=== PATIENT | female | born 1980 | race Caucasian/White ===

== ENCOUNTER 2019-11-08 09:00 | Outpatient (CLI) | payer BC, SELFPAY ==
[2019-11-08 09:23] LABS: Basophils Absolute Auto 0.1 K/mm3 (0.0-0.1); Basophils Percent Auto 1.2 % (0.2-1.2); Eosinophils Absolute Auto 0.2 K/mm3 (0-0.3); Eosinophils Percent Auto 3.8 % (0-4.4); Hematocrit 38.5 % (37.0-47.0); Hemoglobin 13.2 g/dL (12.0-15.0); Immature Granulocyte Absolute 0.01 K/mm3 (0.00-0.031); Immature Granulocyte Percent A 0.2 % (0-0.5); Lymphocytes Absolute Auto 1.29 K/mm3 (0.9-3.2); Lymphocytes Percent Auto 26.1 % (18.3-44.2); Mean Corpuscular HGB Conc 34.3 g/dl (32-36); Mean Corpuscular Hemoglobin 31.1 pg (26-34); Mean Corpuscular Volume 90.8 fl (80-100); Mean Platelet Volume 8.4 fl (7.4-10.4); Monocytes Absolute Auto 0.3 K/mm3 (0.1-0.6); Monocytes Percent Auto 6.5 % (2.6-8.5); Neutrophils Absolute Auto 3.1 K/mm3 (1.3-6.7); Neutrophils Percent Auto 62.2 % (45.5-73.1); Platelet Count Result 279 k/mm3 (150-375); Red Blood Count 4.24 M/mm3 (4.2-5.4); Red Cell Distribution Width 12.2 % (11.5-14.5); White Blood Count 4.9 K/mm3 (4.5-10.0)
[2019-11-08 09:30] LABS: Hemoglobin A1C 5.2 % (<5.7)
[2019-11-08 09:31] LABS: Alanine Aminotransferase 25 U/L (4-35); Albumin Level 4.5 g/dL (3.5-5.1); Alkaline Phosphatase 55 U/L (38-126); Anion Gap 11 mmol/L (8-16); Aspartate Amino Transferase 29 U/L (14-36); Bilirubin,Total 0.3 mg/dL (0.2-1.3); Blood Urea Nitrogen 14 mg/dL (7-17); Calcium 8.9 mg/dL (8.4-10.2); Carbon Dioxide 26 mmol/L (22-30); Chloride 100 mmol/L (98-107); Cholesterol 247 mg/dL (0-200); Estimated Glomerular Filt Rate > 60; Glucose 90 mg/dL (65-105); HDL Direct 35 mg/dL; Potassium 4.1 mmol/L (3.4-5.0); Sodium 137 mmol/L (137-145); Triglycerides 111 mg/dL (<150)
[2019-11-08 09:42] LABS: LDL Cholesterol Direct 176 mg/dL
[2019-11-08 10:18] LABS: Free T4 Free Thyroxine 0.93 ng/mL (0.78-2.19); Vitamin D 25 Hydroxy 61.6 ng/mL
[2019-11-11 22:02] LABS: Triiodothyronine T3 Free 2.6 pg/mL (2.3-4.2)
== END 2019-11-08 09:01 | disposition home or self-care (01) ==
LOC: ANHLAB 09:02
PROVIDERS: Visit Provider Obstetrics & Gynecology
DX: Z01.419 Encounter for gynecological examination (general) (routine) without abnormal findings (principal)
CPT/HCPCS: 36415; 80053; 80061; 82306; 83036; 84439; 84443; 84481; 85025

== ENCOUNTER → 2019-11-08 11:52 | Outpatient (CLI) | payer BC, SELFPAY ==
--- NOTE | ~2019-11-08 | US_ITS ---
EXAMINATION: US thyroid DATE: 11/08/2019 12:18 INDICATION: Nontoxic goiter, unspecified. TECHNIQUE: Multiple ultrasound images of the thyroid were obtained. COMPARISON: None. FINDINGS: The right thyroid lobe measures 6.3 x 2.3 x 1.7 cm. The left thyroid lobe measures 5.5 x 1.8 x 2.0 c m. The thyroid demonstrates diffusely heterogeneous echogenicity and increased vascularity. In the l eft thyroid lobe, there is a 2.0 cm solid, hypoechoic, qcfuw-sgcv-fndf nodule with lobulated margin w ithout echogenic foci (TI-RADS TR4). In the right thyroid lobe, there is a 7 mm solid, hypoechoic, wi rvt-miau-fads nodule with lobulated margin without echogenic foci (TR4). IMPRESSION: 1. Thyroid nodules. Ultrasound-guided fine-needle aspiration of the 2.2 cm left thyroid nodule is rec ommended. 2. Heterogeneous, hypervascular thyroid, consistent with chronic lymphocytic (Jose) thyroiditis. Reviewed, dictated and finalized at location B. IMPRESSION: 1. Thyroid nodules. Ultrasound-guided fine-needle aspiration of the 2.2 cm left thyroid nodule is recommended. 2. Heterogeneous, hypervascular thyroid, consistent with chronic lymphocytic (H ashimoto) thyroiditis.
--- NOTE | ~2019-11-08 | MM_ITS ---
EXAMINATION: MM screening [facility] BI w jose f HISTORY: Screening mammogram TECHNIQUE: Craniocaudal and mediolateral oblique 3-D tomosynthesis images were obtained and synthetic 2-D images were generated. CAD analysis was submitted and interpreted. COMPARISON: 03/07/2009 BREAST PARENCHYMAL COMPOSITION: The breasts are heterogeneously dense, which may obscure small masses . FINDINGS: RIGHT BREAST: There is no evidence of suspicious mass, calcification, or architectural distortion to suggest malignancy. There has been no significant interval change. LEFT BREAST: An asymmetry is present in the middle/posterior third of the inner left breast 6 cm from the nipple on the craniocaudal view. IMPRESSION: 1. Left breast asymmetry on the craniocaudal view. 2. Additional mammographic views and possible breast ultrasound are recommended. BI-RADS Category 0: Incomplete: Needs additional imaging evaluation. Reviewed, dictated and finalized at location A. IMPRESSION: 1. Left breast asymmetry on the craniocaudal view. 2. Additional mammographic views and possible breast ultrasound are recommended . BI-RADS Category 0: Incomplete: Needs additional imaging evaluation.
== END ==
PROVIDERS: Visit Provider Obstetrics & Gynecology
DX: Z12.31 Encounter for screening mammogram for malignant neoplasm of breast (principal); R92.8 Other abnormal and inconclusive findings on diagnostic imaging of breast; E04.2 Nontoxic multinodular goiter
CPT/HCPCS: 76536; 77063; 77067

== ENCOUNTER 2019-11-13 08:27 | Outpatient (CLI) | payer BC, SELFPAY ==
[2019-11-16 03:51] LABS: Thyroglobulin 2.2 ng/mL (2.8-40.9); Thyroglobulin Antibodies 10 IU/mL (<=1)
[2019-11-17 05:43] LABS: FSH 5.5 mIU/mL (***)
[2019-11-19 13:57] LABS: Thyroid Stimulating Immunoglob <89 % baseline (<140)
[2019-11-20 22:32] LABS: Estradiol, Ultrasensitive 132 pg/mL
== END 2019-11-13 08:28 | disposition home or self-care (01) ==
PROVIDERS: PCP Family Medicine; Visit Provider Internal Medicine Endocrinology, Diabetes & Metabolism
DX: E04.1 Nontoxic single thyroid nodule (principal)
CPT/HCPCS: 36415; 82670; 83001; 83002; 84432; 84445; 86800

== ENCOUNTER 2019-11-17 13:15 | Outpatient (CLI) | payer BC, SELFPAY ==
--- NOTE | ~2019-11-17 | US_ITS ---
EXAMINATION: US FNA w image guidance DATE: 11/17/2019 14:21 INDICATION: Nontoxic single thyroid nodule. TECHNIQUE: The procedure and its benefits, risks, and benefits were discussed with the patient. Risks specifical ly discussed included bleeding. The patient verbalized understanding of the risks and agreed to proce ed. The neck was prepped and draped in the usual sterile manner. 1% lidocaine was used for local ane sthesia. 5 passes were made with a 25G needle into the lesion. Appropriate needle location was docu mented with continuous sonographic guidance. There were no immediate complications. The patient unde rstood to call the ordering physician for results after a week and a half and verbalized that underst anding. FINDINGS: Grayscale ultrasound images demonstrate needles advanced into a 2.2 cm left thyroid nodule for biopsy . IMPRESSION: 1. Ultrasound-guided fine needle aspiration of a left thyroid nodule. Reviewed, dictated and finalized at location A.
== END 2019-11-17 13:16 | disposition home or self-care (01) ==
PROVIDERS: PCP Family Medicine; Visit Provider Internal Medicine Endocrinology, Diabetes & Metabolism
DX: E04.1 Nontoxic single thyroid nodule (principal)
CPT/HCPCS: 10005; 88173; 88305

== ENCOUNTER 2019-11-23 08:27 | Outpatient (CLI) | payer BC, SELFPAY ==
--- NOTE | ~2019-11-23 | MMUS_ITS ---
EXAMINATION: MM diagnostic mammo unilat LT, US breast LT limited HISTORY: Follow-up left breast asymmetry TECHNIQUE: Additional 3-D tomosynthesis images of the left breast were performed and synthetic 2-D im ages were generated. CAD analysis was submitted and interpreted. High resolution left breast ultrasou nd was performed. COMPARISON: 11/08/2019 BREAST PARENCHYMAL COMPOSITION: The breasts are heterogenously dense, which may obscure small masses. FINDINGS: MAMMOGRAPHIC FINDINGS: There is persistent asymmetry medially in the left breast on CC view. There are benign appearing calc ifications. No discrete mass or architectural distortion. ULTRASOUND: Left breast ultrasound: There are multiple simple and complicated cysts of the left breast, largest measuring approximately 4 mm near the areola. There is a slightly irregular shaped hypoechoic mass near the areola measuring 6 mm with echogenic hilum, possibly a benign intramammary lymph node. IMPRESSION: 1. Probable benign left breast mass near the areola. 2. Recommend 6 month follow-up left diagnostic mammogram and ultrasound. BI-RADS category 3, probably benign findings. Reviewed, dictated and finalized at location A. IMPRESSION: 1. Probable benign left breast mass near the areola. 2. Recommend 6 month follow-up left diagnostic mammogram and ultrasound. BI-RADS category 3, probably benign findings.
== END 2019-11-23 08:28 ==
PROVIDERS: Visit Provider Obstetrics & Gynecology
DX: R92.8 Other abnormal and inconclusive findings on diagnostic imaging of breast (principal)
CPT/HCPCS: 76642; 77065

== ENCOUNTER 2020-01-03 07:36 | Outpatient (CLI) | payer BC, SELFPAY ==
[2020-01-03 08:46] LABS: Cholesterol 256 mg/dL (0-200); HDL Direct 45 mg/dL; Triglycerides 86 mg/dL (<150)
[2020-01-03 08:57] LABS: LDL Cholesterol Direct 177 mg/dL
[2020-01-03 09:13] LABS: Free T4 Free Thyroxine 0.78 ng/mL (0.78-2.19)
[2020-01-03 09:20] LABS: Total Triiodothyronine (T3) 0.96 NG/ML (0.97-1.69)
== END 2020-01-03 07:37 | disposition home or self-care (01) ==
PROVIDERS: Visit Provider Internal Medicine Endocrinology, Diabetes & Metabolism
DX: E04.1 Nontoxic single thyroid nodule (principal); E78.5 Hyperlipidemia, unspecified
CPT/HCPCS: 36415; 80061; 84439; 84443; 84480

== ENCOUNTER 2020-03-16 14:17 | Outpatient (CLI) | payer BC, SELFPAY ==
[2020-03-16 15:19] LABS: T4 Thyroxine 9.44 ug/dL (5.53-11.0)
== END 2020-03-16 14:18 | disposition home or self-care (01) ==
LOC: ANHLAB 14:18
PROVIDERS: Visit Provider Internal Medicine Endocrinology, Diabetes & Metabolism
DX: E04.1 Nontoxic single thyroid nodule (principal)
CPT/HCPCS: 36415; 84436; 84443

== ENCOUNTER 2020-12-18 13:45 | Outpatient (CLI) | payer BC, SELFPAY ==
--- NOTE | ~2020-12-18 | US_ITS ---
EXAMINATION: US thyroid DATE: 12/18/2020 16:03 INDICATION: Nontoxic single thyroid nodule. TECHNIQUE: Multiple ultrasound images of the thyroid were obtained. COMPARISON: Ultrasound 11/08/2019 FINDINGS: The right thyroid lobe measures 5.4 x 1.7 x 2.0 cm. The left thyroid lobe measures 5.3 x 1.9 x 1.7 c m. The thyroid demonstrates heterogeneous echogenicity and increased vascularity. In the left thyroi d lobe, there is a 2.0 cm solid, hypoechoic, snufs-icjz-hfnm nodule with lobular margin without echog enic foci (TI-RADS TR4). IMPRESSION: 1. Heterogeneous, hypervascular thyroid, consistent with chronic lymphocytic (Jose) thyroiditis. 2. Stable left thyroid nodule. Biopsy on 11/17/2019 was benign. Reviewed, dictated and finalized at location A. IMPRESSION: 1. Heterogeneous, hypervascular thyroid, consistent with chronic lymphocytic (H ashimoto) thyroiditis. 2. Stable left thyroid nodule. Biopsy on 11/17/2019 was benign.
[2020-12-18 14:53] LABS: Total Triiodothyronine (T3) 1.07 NG/ML (0.97-1.69)
[2020-12-18 15:04] LABS: Free T4 Free Thyroxine 0.89 ng/mL (0.78-2.19)
== END 2020-12-18 13:46 | disposition home or self-care (01) ==
LOC: ANHIMG 13:51
PROVIDERS: Visit Provider Internal Medicine Endocrinology, Diabetes & Metabolism
DX: E04.1 Nontoxic single thyroid nodule (principal); R76.8 Other specified abnormal immunological findings in serum
CPT/HCPCS: 36415; 76536; 84439; 84443; 84480

== ENCOUNTER 2020-12-25 11:50 | Outpatient (CLI) | payer BC, SELFPAY ==
--- NOTE | ~2020-12-25 | MMUS_ITS ---
EXAMINATION: MM diagnostic [facility] BI w jose f, US breast BI complete HISTORY: Follow-up breast asymmetry TECHNIQUE: Additional 3-D tomosynthesis images of the breasts were performed and synthetic 2-D images were generated. CAD analysis was submitted and interpreted. High resolution bilateral complete breas t ultrasound was performed. COMPARISON: 11/23/2019 BREAST PARENCHYMAL COMPOSITION: The breasts are heterogenously dense, which may obscure small masses. FINDINGS: MAMMOGRAPHIC FINDINGS: There are bilateral breast asymmetries scattered throughout both breasts which are obscured by fibrog landular tissue. There are no suspicious calcifications. ULTRASOUND: Complete bilateral US of all 4 quadrants of the breasts and retroareolar region was reviewed. There a re innumerable simple and complicated cysts of both breasts which account for asymmetry seen on mammo graphy. There is a cluster of microcysts in the left breast at 2:00, 1 cm from the nipple. There are no suspicious masses to suggest malignancy. IMPRESSION: 1. Benign bilateral simple and complicated cysts of both breasts corresponding to breast asymmetries. No evidence for malignancy in either breast. 2. Routine yearly screening mammogram and regular clinical breast examination are recommended. BI-RADS Category 2: Benign finding(s). Reviewed, dictated and finalized at location A. IMPRESSION: 1. Benign bilateral simple and complicated cysts of both breasts corresponding to breast asymmetries. No evidence for malignancy in either breast. 2. Routine yearly screening mammogram and regular clinical breast examination a re recommended. BI-RADS Category 2: Benign finding(s).
== END 2020-12-25 11:51 | disposition home or self-care (01) ==
PROVIDERS: Visit Provider Student in an Organized Health Care Education/Training Program
DX: N60.02 Solitary cyst of left breast (principal)
CPT/HCPCS: 76641; 77062; 77066; G0279

== ENCOUNTER 2021-02-02 00:59 | Day surgery (SDC) | payer BC, SELFPAY ==
[2021-01-29 10:03] VITALS: BMI 27.9
--- NOTE | 2021-01-29 10:07 | PC.NURSE ---
Report to the Outpatient Waiting Room, entrance under the green pavilion located off [facility], at time 0900 on date __02/02/21 . OR Time: ____1100____. - You and your visitor will be asked a series of questions to screen for COVID 19 for your protection. - A mask is required within the hospital. - Only one visitor is allowed at this time. Patient visitors will be guided where to wait when not with patient. Preoperative COVID Testing Requirements: No COVID Test needed if: (proof is required; if not received patient will have Rapid Test prior to entry) - Patient has received COVID Vaccine at least 14 days prior to procedure date or - Patient has positive COVID test result within last 90 days of surgery date. COVID Test needed if above criteria is not met If not COVID vaccinated a COVID test must be conducted within 72 hours of surgery and patient is asked to isolate self from time of testing until procedure. You will go to the [facility] for your COVID testing. The [facility] is located at the corner of [address] [facility]. You will only be called if COVID results are positive and your surgeon may reschedule your elective surgery date. Patients may have clear liquids (water, carbonated beverages, clear teas, apple juice) until 3 hours prior to surgery with a maximum of 20 ounces. - No food from midnight until time of surgery - Infants may have breast milk until 4 hours before surgery, infant formula 6 hours prior to surgery. - Children will be allowed to drink immediately following surgery. If applicable, please bring a bottle or sippy cup to assist with drinking. Juice, water, soda, and popsicles are readily available. For infants on formula, please bring formula the day of surgery. Pacifiers are allowed. Take the following medications with a SIP of water the morning of surgery: __NONE Medications to discontinue per physician MULTIVITAMIN 3 DAYS PRE OP Date to take last dose_01/29/21 Please no make-up, nail botswanan, hairspray, perfume, deodorant, or body powder the day of surgery. No jewelry (including any body piercings) or valuables the day of surgery, leave them at home. Please take a shower or bath the night before, or the morning of, surgery with an antibacterial soap. Wear comfortable, loose fitting clothing. Children are encouraged to wear pajamas. - Jewelry must be removed prior to entering the operating room. Rings and piercings that are not removed may be cut off. - The hospital will not accept responsibility for valuables. - Please leave all valuables, including medications, at home the day of surgery. If you are going home after surgery, a licensed racing car driver must drive you home. - NO public transportation without another adult. - We recommend that an adult stay with you for 24 hours following discharge. - We also recommend that you do not drive, make important decision, drink alcoholic beverages, or take any drugs that were not prescribed by your health care provider for at least 24 hours after your discharge time. For Pediatric surgeries, we recommend two adults accompany the child home (only one inside the building at this time). Follow any additional instructions given to you from your surgeon. Telephone instructions given to _PATIENT and asked if any additional questions and then verbalized understanding. Patient advised to call surgeon office or pre surgery nurse liaison [phone] if any additional questions.
--- NOTE | 2021-02-01 16:43 | PM.IMHP ---
H&P: HPI History of Present Illness Date/Time: 02/01/21 16:43 Patient is a 40 year old woman with a history of DOMENICA 3 who presents for a scheduled LEEP. Patient had a pap smear showing LGSIL. A colposcopy was performed and biopsies were positive for DOMENICA 3 as well as a positive ECC. Discussion had with patient and decision made proceed with LEEP procedure for further management. In general, patient reports feeling well today without complaints. Chief Complaint: High grade cervical dysplasia Review of Systems Review of Systems: All systems reviewed & are unremarkable except as noted in HPI and below Constitutional: Constitutional: Reports as per HPI, Reports no additional constitutional complaints, Denies chills, Denies fever(s), Denies headache(s) and Denies night sweats Eyes: Eyes: Reports as per HPI and Reports no additional eye complaints ENT: Reports system reviewed and no additional complaints, except as documented, Reports as per HPI, Reports Normal hearing present and Denies headache(s) Cardiovascular: Cardiovascular: Reports as per HPI, Reports no additional cardiovascular complaints, Denies chest pain and Denies dyspnea Respiratory: Respiratory: Reports as per HPI, Reports no additional respiratory complaints, Denies cough and Denies dyspnea Gastrointestinal: Gastrointestinal: Reports as per HPI, Reports no additional gastrointestinal complaints, Denies abdominal pain, Denies change in bowel habits, Denies change in stool character, Denies nausea and Denies vomiting Genitourinary: Genitourinary: Reports no additional female genitourinary complaints, Reports as per HPI, Denies abnormal vaginal bleeding, Denies genital lesions, Denies hot flashes, Denies dyspareunia, Denies pelvic pain, Denies sexual dysfunction, Denies urinary incontinence, Denies vaginal discharge, Denies vaginal dryness and Denies vaginal odor Musculoskeletal: Musculoskeletal: Reports no additional musculoskeletal complaints and Reports as per HPI Integumentary/Breasts: Skin/Breast: Reports system reviewed and no additional complaints, except as docu, Reports as per HPI, Denies breast pain and Denies nipple discharge Neurologic: Reports system reviewed and no additional complaints, except as documented, Reports as per HPI, Reports Normal hearing present and Denies headache(s) Psychiatric: Psychiatric: Reports no additional psychiatric complaints, Reports as per HPI, Denies anxiety and Denies depression Endocrine: Endocrine: Reports no additional endocrine complaints and Reports as per HPI Hematologic/Lymphatic: Hematologic/Lymphatic: Reports no additional hematologic/lymphatic complaints and Reports as per HPI Allergic/Immunologic: Allergic/Immunologic: Reports no additional allergic/immunologic complaints and Reports as per HPI PMFSH Past Medical History Medical History ADD (attention deficit disorder) without hyperactivity Anxiety Depression 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 Surgical History Surgical History History of dilation and curettage x2 History of endometrial ablation 2016 History of tonsillectomy History of tubal ligation 2016 Previous section x2 Tubal ligation status x2 2004 and 2010 Family History Family History Mother Anxiety Thyroid nodule Social History Social History Smoking packs per day: 0.5 Smoking cigarettes per day: 10.0 Years smoked: 15 Smoking pack-years: 7.50 Smoking status: Former smoker Tobacco type: cigarettes Smoking end date: 03/17/18 Alcohol intake: current Alcohol use details: 2 DRINKS PER MONTH Substance use: never Spiritual care concerns: No Meds Home Medications and Allergies Home Medications Medication I
[2021-02-02 09:11] VITALS: BP 143/78; PULSE 95; RESP 20; TEMP 36.7; O2SAT 99
--- NOTE | 2021-02-02 09:14 | WPDANESEPPF ---
Anes - Initial Pre Proc Eval Procedure: Operation Date: 02/02/21 11:00 Proposed Procedures p Loop Electrical Excision Procedure - Vannessa Eason MD Date/Time: 02/02/21 09:14 Surgeon: Vannessa Eason MD Pre Op Diagnosis: DOMENICA 3, positive ECC Patient Data Age: 40 Gender: F Height: 1.68 m Weight: 78.5 kg Allergies Allergy/AdvReac Type Severity Reaction Status Date / Time No Known Allergies Allergy Verified 02/02/21 09:11 Home Medications Medication Instructions Recorded Confirmed Type acetaminophen 325 mg capsule 500 mg PO Q6H PRN 12/05/20 02/02/21 History cetirizine 10 mg capsule 10 mg PO DAILY PRN 12/05/20 02/02/21 History methylphenidate HCl 10 mg tablet 10 mg PO DAILY 12/05/20 02/02/21 History sertraline 50 mg tablet 50 mg PO HS 12/05/20 02/02/21 History multivitamin 1 tablet PO DAILY 01/02/21 02/02/21 History Patient hx anesthesia problems: none Family hx anesthesia problems: none Results Review: All pre-operative results and documents have been reviewed as part of the pre-operative evaluation. 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 Surgical History Surgical History History of dilation and curettage x2 History of endometrial ablation 2016 History of tonsillectomy History of tubal ligation 2016 Previous section x2 Tubal ligation status x2 2003 and 2010 Family History Family History Mother Anxiety Thyroid nodule Social History Social History Smoking packs per day: 0.5 Smoking cigarettes per day: 10.0 Years smoked: 15 Smoking pack-years: 7.50 Smoking status: Former smoker Tobacco type: cigarettes Smoking end date: 03/17/18 Alcohol intake: current Alcohol use details: 2 DRINKS PER MONTH Substance use: never Living arrangements: with family Spiritual care concerns: No Anes - Eval Final PreProcedure Day of Procedure 11/19/21 09:14 Patient weight: normal Heart: regular rate and rhythm Lungs: clear to auscultation Airway: Mallampati scale class II Neurological: alert and oriented Last oral intake: >/= 8 hours ASA classification: II Emergent: no Anesthetic plan: proceed Anesthesia type and monitoring: general GIVS and standard monitoring Results Review: All pre-operative results and documents have been reviewed as part of the pre-operative evaluation. Informed Consent: The patient's anesthetic plan and its attendant risks and benefits were discussed with the patient/family/POA. Questions were solicited and answers provided to the satisfaction of the patient/family/POA.
[2021-02-02] MEDS: LACTATED RINGERS 1,000 ML 30 ML IV CONT (09:30)
[2021-02-02] MEDS: ACETAMINOPHEN 500 MG TABLET 1000 MG PO (09:38)
--- NOTE | 2021-02-02 09:54 | WPDHPUPDATE1 ---
History and Physical Update Update Date/Time: 02/02/21 09:54 History and Physical has been reviewed, including an updated exam of the patient. There are NO changes in the patient's condition. Risks, benefits, and alternatives have been discussed and questions answered. Patient agrees to proceed with procedure.
[2021-02-02] MEDS: KETOROLAC 30 MG/ML VIAL (*BKC) IV PUSH (10:10)
[2021-02-02 10:40] VITALS: BP 109/70; PULSE 75; RESP 16; O2SAT 99
--- NOTE | 2021-02-02 10:57 | W.PM.PROC2 ---
Procedure Note - Detailed Date of Procedure 02/02/21 Pre-op Diagnosis DOMENICA 3, positive ECC Post-op Diagnosis same Procedure Performed Loop electrosurgical excision procedure Surgeon Vannessa Eason MD Anesthesia MAC Findings narrow area of non-uptake noted around cervix Description of Procedure The patient was taken to the operating room where she self-transferred to the operating room table. She was placed in dorsal supine position. Anesthesia was administered and found to be adequate. The patient was repositioned in dorsal lithotomy position and prepped and draped in the usual sterile fashion. A coated bivalve speculum was inserted into the vagina and suction tubing was connected to the speculum. The cervix was well visualized. A paracervical block was performed with 1% lidocaine. 5 cc of lidocaine was administered on both sides for a total of 10 cc. Lugol's solution was applied across the entire surface of the cervix. A narrow area of non-uptake was visualized circumferentially around the cervix. A large-size loop was selected and connected to the electrical generator. This loop was used to make one pass across the anterior surface of the cervix. The specimen was removed and set aside. A top hat loop was then used to excise a deeper portion of the endocervical canal and this specimen was also set aside. An endocervical curettage was performed. Rollerball cautery was used to cauterize the entire excision site and margins of the excision bed. Excellent hemostasis was noted. The procedure was deemed complete. The vagina was dried and the speculum was removed. Specimen were prepared to be sent to pathology for analysis and tagged with a suture at 12:00. The patient was cleansed and dried. She was taken out of the dorsal lithotomy position and awakened from anesthesia without difficulty. She was transported to the recovery room in stable condition. All sponge and instrument counts were correct at the end of the procedure. Estimated Blood Loss -15.0 IV Fluids 700 Drains No Packing No Pathology yes (anterior portion of cervix (tagged at 12:00); top hat cervix (tagged at 12:00); endocervical curettage) Complications No immediate complications Condition stable Disposition same day
[2021-02-02] MEDS: fentaNYL CITRATE INJ (*CRX) 100 MCG/2 ML VIAL 25 MCG IV PUSH ×2 (11:01→11:10)
[2021-02-02 11:10] VITALS: BP 110/71; PULSE 96; RESP 16; O2SAT 96
[2021-02-02] MEDS: oxyCODONE HCL (*CRX) 5 MG TAB IR PO (11:34)
[2021-02-02 11:40] VITALS: BP 113/71; BP 122/74; PULSE 67; PULSE 71; RESP 16
== END 2021-02-02 12:07 | disposition home or self-care (01) ==
PROVIDERS: Visit Provider Student in an Organized Health Care Education/Training Program
PROC: 0UBC7ZZ Excision of Cervix, Via Natural or Artificial Opening (ICD-10-PCS; CPT 57522; principal; 2021-02-02 11:00)
DX: D06.0 Carcinoma in situ of endocervix (principal); E06.3 Autoimmune thyroiditis; F98.8 Other specified behavioral and emotional disorders with onset usually occurring in childhood and adolescence; F41.8 Other specified anxiety disorders; Z87.891 Personal history of nicotine dependence
CPT/HCPCS: 57522; 88305; A9270; J1885; J2250; J2405; J2704; J3010; J7120

== ENCOUNTER → 2021-03-13 02:04 | Outpatient (CLI) | payer BC, SELFPAY ==
[2021-03-14 03:58] LABS: SARS-CoV-2 RNA PCR Negative
== END ==
PROVIDERS: PCP Family Medicine; Visit Provider Family Medicine
DX: R68.89 Other general symptoms and signs (principal); Z20.822 Contact with and (suspected) exposure to COVID-19
CPT/HCPCS: C9803; U0003; U0005

== ENCOUNTER 2022-03-03 15:57 | Emergency (ER) | payer BC, SELFPAY ==
[2022-03-03 16:05] VITALS: BP 152/86; PULSE 99; RESP 16; TEMP 37.2; O2SAT 99
--- NOTE | 2022-03-03 16:35 | ED.URI ---
HPI - URI/Sore Throat General Chief Complaint: Upper Respiratory Infection Stated Complaint: cold /flu sx Time Seen by Provider: 03/03/22 16:35 Source: patient, RN notes reviewed and old records reviewed Mode of arrival: ambulatory Limitations: no limitations History of Present Illness HPI Narrative: 41-year-old female presents to the [facility] with complaints of body aches, congestion, cough for about 1 week Had been given [id number] cold treatments. Related Data Home Medications Medication Instructions Recorded Confirmed cetirizine 10 mg capsule (Zyrtec) 10 mg PO DAILY PRN Allergy Symptoms 12/05/20 03/03/22 methylphenidate HCl 10 mg tablet 10 mg PO DAILY 12/05/20 03/03/22 sertraline 50 mg tablet 50 mg PO HS 12/05/20 03/03/22 multivitamin 1 tablet PO DAILY 01/02/21 03/03/22 Allergies Allergy/AdvReac Type Severity Reaction Status Date / Time No Known Allergies Allergy Verified 03/03/22 16:01 Review of Systems Review of Systems: All systems reviewed & are unremarkable except as noted in HPI and below Constitutional: Constitutional: Reports as per HPI and Reports fatigue Eyes: Eyes: Reports no additional eye complaints ENT: Reports as per HPI and Reports nasal congestion Cardiovascular: Cardiovascular: Reports no additional cardiovascular complaints, Denies chest pain and Denies dyspnea Respiratory: Respiratory: Reports as per HPI, Denies chest congestion, Reports cough and Denies dyspnea Gastrointestinal: Gastrointestinal: Reports no additional gastrointestinal complaints, Denies abdominal pain, Denies nausea and Denies vomiting Musculoskeletal: Musculoskeletal: Reports no additional musculoskeletal complaints Integumentary/Breasts: Skin/Breast: Reports system reviewed and no additional complaints, except as docu Neurologic: Reports system reviewed and no additional complaints, except as documented Psychiatric: Psychiatric: Reports no additional psychiatric complaints Allergic/Immunologic: Allergic/Immunologic: Reports no additional allergic/immunologic complaints PMFSH Past Medical History Medical History ADD (attention deficit disorder) without hyperactivity Anxiety Depression 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 Surgical History Surgical History History of dilation and curettage x2 History of endometrial ablation 2016 History of tonsillectomy History of tubal ligation 2016 Previous section x2 Tubal ligation status x2 2004 and 2010 Family History Family History Mother Anxiety Thyroid nodule Social History Social History Smoking packs per day: 0.5 Smoking cigarettes per day: 10.0 Years smoked: 15 Smoking pack-years: 7.50 Smoking status: Former smoker Tobacco type: cigarettes Smoking end date: 03/17/18 Alcohol intake: current Alcohol use details: 2 DRINKS PER MONTH Substance use: never Spiritual care concerns: No Comments At the time of my signature, I reviewed and agree with the nursing past medical, surgical, social, and family history. There is no relevant family history pertinent to the patient complaint. Exam Const: General: cooperative, healthy appearing, comfortable, no acute distress, well developed, alert and well nourished Nutritional Appearance: well nourished Orientation/consciousness: patient oriented x3 Limitations: no limitations HENMT: Head: normal to inspection Ears: hearing grossly normal bilaterally and external ears normal Face/Nose/Sinus: Normal external nose present, Normal nares present, Normal nasal mucous membranes and turbinates present and normal facial exam Face and sinus: normal facial exam Mouth: Yes Normal oral and palatal mucosa present, Yes lip
== END 2022-03-03 17:13 | disposition home or self-care (01) ==
PROVIDERS: Emergency Provider Nurse Practitioner
DX: J32.9 Chronic sinusitis, unspecified (principal); J40 Bronchitis, not specified as acute or chronic; Z87.891 Personal history of nicotine dependence; F98.8 Other specified behavioral and emotional disorders with onset usually occurring in childhood and adolescence; F41.9 Anxiety disorder, unspecified; F32.A Depression, unspecified; E06.3 Autoimmune thyroiditis
CPT/HCPCS: 87804; 99213; G0463

== ENCOUNTER 2022-10-24 08:22 | Emergency (ER) | payer BC, SELFPAY ==
--- NOTE | 2022-10-24 08:32 | ED.URI ---
HPI - URI/Sore Throat General Chief Complaint: Upper Respiratory Infection Stated Complaint: stomach issues, ear & throat pain Time Seen by Provider: 10/24/22 08:32 Source: patient Mode of arrival: ambulatory Limitations: no limitations History of Present Illness HPI Narrative: Patient is a 42-year-old female who presents with 2 days of abdominal pain, diarrhea, nausea and vomiting. Patient also reports sore throat and bilateral ear pain. Patient has been taking ibuprofen and Imodium with moderate relief of symptoms. Patient states she has been able to tolerate fluids and small meals. Denies any fever, chills, congestion, cough. Related Data Home Medications Medication Instructions Recorded Confirmed sertraline 50 mg tablet 50 mg PO HS 12/05/20 10/24/22 multivitamin 1 tablet PO DAILY 01/02/21 10/24/22 methylphenidate HCl 10 mg tablet 10 mg PO QID 10/24/22 10/24/22 Allergies Allergy/AdvReac Type Severity Reaction Status Date / Time No Known Allergies Allergy Verified 10/24/22 09:04 Review of Systems Review of Systems: All systems reviewed & are unremarkable except as noted in HPI and below Constitutional: Constitutional: Denies body ache(s), Denies chills, Denies fatigue, Denies fever(s), Denies headache(s), Denies malaise and Denies weakness Eyes: Eyes: Denies blurry vision, Denies itchy eyes and Denies loss of vision ENT: Reports otalgia, Denies headache(s), Denies nasal congestion, Denies sinus pain and Reports sore throat Cardiovascular: Cardiovascular: Denies chest pain, Denies irregular heart rhythm and Denies dyspnea Respiratory: Respiratory: Reports cough and Denies dyspnea Gastrointestinal: Gastrointestinal: Denies abdominal pain, Reports diarrhea, Reports nausea and Reports vomiting Musculoskeletal: Musculoskeletal: Denies back pain, Denies myalgias and Denies arthralgias Integumentary/Breasts: Skin/Breast: Denies pruritus and Denies rash Neurologic: Denies headache(s), Denies loss of vision and Denies weakness Psychiatric: Psychiatric: Reports no additional psychiatric complaints Endocrine: Endocrine: Denies fatigue Allergic/Immunologic: Allergic/Immunologic: Denies itchy eyes PMFSH Past Medical History Medical History ADD (attention deficit disorder) without hyperactivity Anxiety Depression 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 Surgical History Surgical History History of dilation and curettage x2 History of endometrial ablation 2016 History of tonsillectomy History of tubal ligation 2016 Previous section x2 Tubal ligation status x2 2004 and 2010 Family History Family History Mother Anxiety Thyroid nodule Social History Social History Smoking packs per day: 0.5 Smoking cigarettes per day: 10.0 Years smoked: 15 Smoking pack-years: 7.50 Smoking status: Former smoker Tobacco type: cigarettes Smoking end date: 03/17/18 Alcohol intake: current Alcohol use details: 2 DRINKS PER MONTH Substance use: never Living arrangements: with family Spiritual care concerns: No Comments At time of signature, agree with nursing past medical, surgical, social and family history. There is no relevant family history pertinent to the presenting complaint. Exam Const: General: cooperative, healthy appearing, comfortable, no acute distress and well nourished Nutritional Appearance: well nourished Orientation/consciousness: patient oriented x3 Limitations: no limitations HENMT: Head: normal to inspection, normocephalic and atraumatic Ears: hearing grossly normal bilaterally, external ears normal, TM's normal bilaterally, EAC's normal and no periauricular adenopathy Face/Nose/Sinus: Normal externa
[2022-10-24 08:39] VITALS: BP 132/79; PULSE 100; RESP 18; TEMP 36.8; O2SAT 100
== END 2022-10-24 09:13 | disposition home or self-care (01) ==
PROVIDERS: Emergency Provider Nurse Practitioner Family
DX: R11.2 Nausea with vomiting, unspecified (principal); R19.7 Diarrhea, unspecified; J06.9 Acute upper respiratory infection, unspecified; Z20.822 Contact with and (suspected) exposure to COVID-19; Z87.891 Personal history of nicotine dependence; E06.3 Autoimmune thyroiditis; F41.9 Anxiety disorder, unspecified; F32.A Depression, unspecified; F98.8 Other specified behavioral and emotional disorders with onset usually occurring in childhood and adolescence
CPT/HCPCS: 87081; 87426; 87804; 87880; 99213; C9803; G0463

== ENCOUNTER 2023-05-08 12:23 | Emergency (ER) | payer BC, SELFPAY ==
[2023-05-08 12:38] VITALS: BP 127/88; PULSE 110; RESP 16; TEMP 37.2; O2SAT 100
--- NOTE | 2023-05-08 12:49 | ED.URI ---
HPI - URI/Sore Throat General Chief Complaint: Upper Respiratory Infection Stated Complaint: Flu Symptoms Time Seen by Provider: 05/08/23 12:49 Source: patient and RN notes reviewed Mode of arrival: ambulatory Limitations: no limitations History of Present Illness HPI Narrative: 42 y/o female presented for c/o nasal congestion, fever, body aches. States she woke in the night with severe body aches. Fever up to 101. Taking ibprofen and Tylenol. Endorses dtr with Flu A&B and pneumonia. Denies sob, wheezing, n/v/d. MD elicited complaint: cough Related Data Home Medications Medication Instructions Recorded Confirmed sertraline 50 mg tablet 50 mg PO HS 12/05/20 05/08/23 multivitamin 1 tablet PO DAILY 01/02/21 10/24/22 methylphenidate HCl 10 mg tablet 10 mg PO QID 10/24/22 05/08/23 Allergies Allergy/AdvReac Type Severity Reaction Status Date / Time No Known Allergies Allergy Verified 05/08/23 12:33 Review of Systems Review of Systems: CONSTITUTIONAL: Endorses malaise, chills, sweats, fever EYES: Denies visual changes, redness, or discharge ENT: Reports rhinorrhea, congestion, denies sinus pain, otalgia, sore throat CARDIOVASCULAR: Denies chest pain, palpitations, edema RESPIRATORY: Reports cough, post nasal drainage. 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 Surgical History Surgical History History of dilation and curettage x2 History of endometrial ablation 2016 History of tonsillectomy History of tubal ligation 2016 Previous section x2 Tubal ligation status x2 2003 and 2010 Family History Family History Mother Anxiety Thyroid nodule Social History Social History Smoking packs per day: 0.5 Smoking cigarettes per day: 10.0 Years smoked: 15 Smoking pack-years: 7.50 Smoking status: Former smoker Tobacco type: cigarettes Smoking end date: 03/17/18 Alcohol intake: current Alcohol use details: 2 DRINKS PER MONTH Substance use: never Living arrangements: with family Spiritual care concerns: No Exam Narrative: GENERAL: Mildly ill-appearing, nontoxic no acute distress. HEAD: Normocephalic EYES: PERRLA, conjunctivae clear ENT: Mucous membranes moist. TM pearly gay with dull light reflex and clear effusion bilaterally; no tragal tenderness. Oropharynx in a erythematous without lesions or exudate, no drooling, no hoarseness, no trismus, uvula midline. No tripod positioning, muffled voice, soft palate or pharyngeal wall bulging NECK: Supple. No lymphadenopathy CHEST: Clear to auscultation, breath sounds equal. No wheezing, rhonchi, rales, or stridor. No respiratory distress, speaks in full sentences. HEART: Regular rate and rhythm. No murmur heard. SKIN: Warm, dry, no rash. NEURO: Alert and oriented x3. PSYCH: Normal mood and affect Course Course Emergency Course: Patient is aware of diagnosis, understands and agrees to treatment plan. Anticipatory guidance given. Patient agrees to follow-up as directed and is aware of reasons to seek care at the emergency department. Portions of this record may have been created with voice recognition software Level of Care: Express Care Visit Vital Signs Vital signs: Vital Signs Temperature 99 F 05/08/23 12:38 Pulse Rate 110 H 05/08/23 12:38 Respiratory Rate 16 05/08/23 12:38 Blood Pressure 127/88 05/08/23 12:38 Pulse Oximetry 100 05/08/23 12:38 Temperature 99 F
== END 2023-05-08 13:05 | disposition home or self-care (01) ==
PROVIDERS: Emergency Provider Nurse Practitioner Family
DX: B34.9 Viral infection, unspecified (principal); F32.A Depression, unspecified; F41.9 Anxiety disorder, unspecified; Z87.891 Personal history of nicotine dependence; Z79.899 Other long term (current) drug therapy; Z20.822 Contact with and (suspected) exposure to COVID-19
CPT/HCPCS: 87426; 87804; 99213; G0463

== ENCOUNTER 2023-05-11 11:51 | Emergency (ER) | payer BC, SELFPAY ==
[2023-05-11 12:29] VITALS: BP 165/93; PULSE 109; RESP 16; TEMP 37.2; O2SAT 100
--- NOTE | 2023-05-11 12:57 | ED.URI ---
HPI - URI/Sore Throat General Chief Complaint: Upper Respiratory Infection Stated Complaint: BODY ACHES/HEAD PRESSURE/SINUS CONGESTION Time Seen by Provider: 05/11/23 12:35 Source: patient Mode of arrival: ambulatory Limitations: no limitations History of Present Illness HPI Narrative: Lorrie is a 42-year-old female patient presenting to the clinic today with complaints of body aches,sinus congestion, and sinus pressure x3 days. Reports that her daughter has tested positive for influenza A and B. Was seen here 2 days ago and was tested for influenza and it was negative at that time. MD elicited complaint: nasal congestion and sinus pain Related Data Home Medications Medication Instructions Recorded Confirmed sertraline 50 mg tablet 50 mg PO HS 12/05/20 05/08/23 methylphenidate HCl 10 mg tablet 10 mg PO QID 10/24/22 05/08/23 Allergies Allergy/AdvReac Type Severity Reaction Status Date / Time No Known Allergies Allergy Verified 05/08/23 12:33 Review of Systems Review of Systems: Pertinent positives per HPI. Patient denies any fever, chills, rash, visual changes, dizziness, cough, shortness of breath, chest pain, palpitations, nausea, vomiting, diarrhea, constipation, abdominal pain, or any urinary issues. 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 Surgical History Surgical History History of dilation and curettage x2 History of endometrial ablation 2016 History of tonsillectomy History of tubal ligation 2016 Previous section x2 Tubal ligation status x2 2003 and 2010 Family History Family History Mother Anxiety Thyroid nodule Social History Social History Smoking packs per day: 0.5 Smoking cigarettes per day: 10.0 Years smoked: 15 Smoking pack-years: 7.50 Smoking status: Former smoker Tobacco type: cigarettes Smoking end date: 03/17/18 Alcohol intake: current Alcohol use details: 2 DRINKS PER MONTH Substance use: never Living arrangements: with family Spiritual care concerns: No Comments At the time of my signature, I reviewed and agree with the nursing past medical, surgical, social, and family history. There is no relevant family history pertinent to the patient complaint. Exam Narrative: General: Well-developed, well nourished, in no apparent distress Head: Normocephalic, atraumatic Eyes: Pupils equally round and reactive to light bilaterally, EOM intact, sclera and conjunctive clear, no discharge, lids normal Ears: TMs intact and congested, ear canals clear, no drainage, grossly hearing normal. Nose: Nares patent, clear discharge, no inflammation, no sinus tenderness. Mouth: Oral pharynx without lesions or masses, good dentition, MMM. Neck: Supple, trachea midline, no enlargement of anterior or posterior cervical nodes, no thyroid masses or goiter palpable. Cardio: Regular rate and rhythm, s1 and s2 normal, no murmur appreciated. Resp: Clear to auscultation bilaterally, no rhonchi, rales, wheezing or rubs Course Course Emergency Course: Portions of this record may have been created with voice recognition software. Level of Care: Express Care Visit Vital Signs Vital signs: Vital Signs Temperature 37.2 C 05/11/23 12: Pulse Rate 109 H 05/11/23 12:29 Respiratory Rate 16 05/11/23 12:29 Blood Pressure 165/93 H 05/11/23 12:29 Pulse Oximetry 100 05/11/23 12:29 Temperature 37.2 C 05/11/23 12:29 Pulse Rate 109 H 05/11/23 12:29 Respiratory Rate 16 05/11/23 12:29 Blood Pressure 165/93 H 05/11/23 12:29 Pulse Oximetry 100
== END 2023-05-11 13:10 | disposition home or self-care (01) ==
PROVIDERS: Emergency Provider Nurse Practitioner Family
DX: J06.9 Acute upper respiratory infection, unspecified (principal); B34.9 Viral infection, unspecified; Z87.891 Personal history of nicotine dependence; E06.3 Autoimmune thyroiditis; F98.8 Other specified behavioral and emotional disorders with onset usually occurring in childhood and adolescence; F41.9 Anxiety disorder, unspecified; F32.A Depression, unspecified
CPT/HCPCS: 87804; 99213; G0463

== ENCOUNTER 2023-12-08 10:41 | Emergency (ER) | payer SELFPAY ==
[2023-12-08 10:46] VITALS: BP 163/93; PULSE 108; RESP 16; TEMP 36.4; O2SAT 97
--- NOTE | 2023-12-08 11:02 | ED.URI ---
HPI - URI/Sore Throat General Chief Complaint: Upper Respiratory Infection Stated Complaint: Rash/Cough Time Seen by Provider: 12/08/23 10:57 Source: patient, RN notes reviewed and old records reviewed Mode of arrival: ambulatory Limitations: no limitations History of Present Illness HPI Narrative: 43 year old female who presents to [facility] care with complaints of cough with upper chest congestion for about 1 week duration. Ptient reports over the weekend her cough has become worse and is productive. Patient reports that she has also started with fine red rash over her body which has started to burn and itch today. Patient reports that she has body aches and nausea today without vomiting or diarrhea, reports no known fever states general malaise. She reports that she has taken Tylenol Mucinex, and also has taken some Benadryl for her symptoms. MD elicited complaint: cough and sore throat Onset (ago): week(s) (cough for about 1 week increased symptoms past 3 days) Consistency: progressively worsening Severity: moderate Description of mucous: clear and yellow Able to tolerate fluids by mouth: Yes Treatments prior to arrival: acetaminophen and other (Mucinex,Benadryl) Related Data Home Medications Medication Instructions Recorded Confirmed sertraline 50 mg tablet 50 mg PO HS 12/05/20 12/08/23 methylphenidate HCl 10 mg tablet 10 mg PO QID 10/24/22 12/08/23 Allergies Allergy/AdvReac Type Severity Reaction Status Date / Time No Known Allergies Allergy Verified 12/08/23 10:50 Review of Systems Review of Systems: CONSTITUTIONAL: Reports malaise,no chills, sweats, or fever. EYES: Denies visual changes, redness, or discharge. ENT: Reports rhinorrhea, congestion,no sinus pain,no otalgia and no sore throat. CARDIOVASCULAR: Denies chest pain, palpitations, or edema. RESPIRATORY: Reports cough.? Denies dyspnea. GASTROINTESTINAL: Denies abdominal pain,reports nausea,no vomiting, diarrhea SKIN: reports fine red generalized rash or itching. MUSCULOSKELETAL: reports myalgia. NEUROLOGIC: Denies headache. 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 Surgical History Surgical History History of dilation and curettage x2 History of endometrial ablation 2016 History of tonsillectomy History of tubal ligation 2016 Previous section x2 Tubal ligation status x2 2004 and 2010 Family History Family History Mother Anxiety Thyroid nodule Social History Social History Smoking packs per day: 0.5 Smoking cigarettes per day: 10.0 Years smoked: 15 Smoking pack-years: 7.50 Smoking status: Former smoker Tobacco type: cigarettes Smoking end date: 03/17/18 Alcohol intake: current Alcohol use details: 2 DRINKS PER MONTH Substance use: never Living arrangements: with family Spiritual care concerns: No Comments At time of signature, agree with nursing past medical, surgical, social and family history. There is no relevant family history pertinent to the presenting complaint Exam Narrative: GENERAL: Well-appearing, well-nourished, and in no acute distress. HEAD: Normocephalic EYES: PERRLA, conjunctivae clear ENT: Nares clear, turbinates edematous and erythematous, clear discharge. Mucous membranes moist. TM pearly gay with dull light reflex bilaterally; no tragal tenderness. Oropharynx erythematous without lesions. Tonsils not present and throat without exudate, no drooling, no hoarseness, no trismus, uvula midline. NECK: Sup
[2023-12-08 11:28] LABS: EDCOVIDSCREEN Negative (Negative); EDINFLUASCREEN Negative (Negative); EDINFLUBSCREEN Negative (Negative); EDSTREPNEGPOS1 Negative (Negative)
== END 2023-12-08 11:45 | disposition home or self-care (01) ==
PROVIDERS: Emergency Provider Registered Nurse
DX: J40 Bronchitis, not specified as acute or chronic (principal); R21 Rash and other nonspecific skin eruption; Z20.822 Contact with and (suspected) exposure to COVID-19; Z87.891 Personal history of nicotine dependence; F98.8 Other specified behavioral and emotional disorders with onset usually occurring in childhood and adolescence; F41.9 Anxiety disorder, unspecified; F32.A Depression, unspecified; E06.3 Autoimmune thyroiditis
CPT/HCPCS: 87081; 87426; 87804; 87880; 99213; G0463

== ENCOUNTER 2024-06-15 12:06 | Outpatient (CLI) | payer BC, SELFPAY ==
--- NOTE | ~2024-06-15 | XR_ITS ---
EXAM: XR lumbar spine 2-3V DATE: 06/15/2024 12:28 HISTORY: Other spondylosis, lumbar region . COMPARISON: None available. FINDINGS: 5 nonrib-bearing lumbar-type vertebral bodies. Pedicles intact. Normal vertebral body alig nment. Vertebral body heights preserved. Multilevel mild disc space narrowing and marginal osteophyto sis in the lower thoracic spine and upper lumbar spine. Moderate disc space narrowing at L5-S1. Mild facet sclerosis in the mid and lower lumbar spine. No fracture or dislocation. IMPRESSION: Multilevel thoracic and lumbar degenerative disc disease, moderate at L5-S1. Mild mid and lower lumbar facet arthropathy. Reviewed, dictated and finalized at location K.
== END 2024-06-15 12:07 | disposition home or self-care (01) ==
PROVIDERS: PCP Emergency Medicine; Visit Provider Emergency Medicine
DX: M47.896 Other spondylosis, lumbar region (principal); M51.379 Other intervertebral disc degeneration, lumbosacral region without mention of lumbar back pain or lower extremity pain
CPT/HCPCS: 72100

== ENCOUNTER 2024-06-18 10:13 | Outpatient (CLI) | payer BC, SELFPAY ==
--- NOTE | ~2024-06-18 | US_ITS ---
EXAMINATION: US thyroid DATE: 06/18/2024 10:34 INDICATION: Autoimmune thyroiditis. Thyroid nodule. TECHNIQUE: Multiple ultrasound images of the thyroid were obtained. COMPARISON: 12/18/2020 FINDINGS: The right thyroid lobe measures 5.3 x 2.1 x 1.4 cm. The left thyroid lobe measures 5.2 x 2.0 x 1.6 c m. Thyroid isthmus measures 5 mm in thickness. 2.2 cm wider than tall solid hypoechoic nodules in the left thyroid with smooth margins and without echogenic foci. (TI-RADS 4, moderately suspicious , FNA if >=1.5 cm, annual followup is >=1 cm). There are a few additional subcentimeter TI-RADS 4 nodules in the right thyroid lobe, the largest measuring 6 mm. The previously seen diffuse hypervascularity t hroughout the thyroid has resolved. IMPRESSION: 1. Unchanged multinodular goiter with prior benign biopsy on 11/17/2019 of the unchanged single TI-RADS 4 nodule meeting criteria for biopsy. Reviewed, dictated and finalized at location A. IMPRESSION: 1. Unchanged multinodular goiter with prior benign biopsy on 11/17/2019 of the un changed single TI-RADS 4 nodule meeting criteria for biopsy.
== END 2024-06-18 10:14 | disposition home or self-care (01) ==
LOC: MICIMG 10:14
PROVIDERS: PCP Emergency Medicine; Visit Provider Emergency Medicine
DX: E06.3 Autoimmune thyroiditis (principal); E04.2 Nontoxic multinodular goiter
CPT/HCPCS: 76536

== ENCOUNTER 2025-01-05 12:10 | Outpatient (CLI) | payer BC, SELFPAY ==
--- NOTE | ~2025-01-05 | MM_ITS ---
EXAMINATION: screening [facility] BI w jose f INDICATION: Asymptomatic, referred for screening mammogram COMPARISON: 12/25/2020 through 03/07/2009 TECHNIQUE: Digital Breast Tomosynthesis CC, MLO views of Both breasts were obtained with computer-aided detection to assist in interpretation of the study. FINDINGS: The breasts are heterogeneously dense, which may obscure small masses. There is a mass containing calcifications in the outer central left breast at middle third. In addition, there is a mass with partially obscured margins seen in the superior central left breast at middle to anterior depth. There is a group of calcifications seen in the inferior central left breast at middle depth. Elsewhere, there are no mammographic features of malignancy. IMPRESSION: 1. Left breast masses and a group of incompletely characterized calcifications. 2. No evidence of malignancy in the Right breast. RECOMMENDATION: Left breast Diagnostic mammogram with true lateral, appropriate spot compression views and an ultrasound if needed. Diagnostic left mammography with appropriate magnification views. BI-RADS Category 0: Incomplete: Needs additional imaging evaluation. Reviewed, dictated and finalized at location B. IMPRESSION: 1. Left breast masses and a group of incompletely characterized calcifications . 2. No evidence of malignancy in the Right breast. RECOMMENDATION: Left breast Diagnostic mammogram with true lateral, appropriate spot compressio n views and an ultrasound if needed. Diagnostic left mammography with appropriate magnification views. BI-RADS Category 0: Incomplete: Needs additional imaging evaluation.
== END 2025-01-05 12:11 | disposition home or self-care (01) ==
LOC: MICIMG 12:11
PROVIDERS: PCP Emergency Medicine; Visit Provider Emergency Medicine
DX: Z12.31 Encounter for screening mammogram for malignant neoplasm of breast (principal); N63.20 Unspecified lump in the left breast, unspecified quadrant
CPT/HCPCS: 77063; 77067